=== PATIENT | female | born 1980 | race Caucasian/White ===

== ENCOUNTER 2018-04-29 09:31 | Emergency (ER) | payer BC ==
[2018-04-29] MEDS ORDERED: Acetaminophen/HYDROcodone 325-5 MG Tab PO ONE (10:15)
--- NOTE | 2018-04-29 10:23 | EDM.PDOC ---
<Caroline Neely - Last Filed: 04/29/18 10:30> ED HPI GENERAL MEDICAL PROBLEM - General Chief Complaint: Lower Extremity Injury/Pain Stated Complaint: L LEG INJURY Time Seen by Provider: 04/29/18 09:46 Source of Information: Reports: Patient History Limitations: Reports: No Limitations - History of Present Illness INITIAL COMMENTS - FREE TEXT/NARRATIVE: Pierce is a 37-year-old woman with history of Type 1 Diabetes, hypothyroidism, and dyslipidemia who reports acute onset of left calf pain after jumping up and down at approximately 9am today. She was sitting in the bleachers at her son's basketball game when her son's name was announced, and she jumped up in excitement. As soon as she jumped, she reports feeling a "snap" in her left mid- calf, and has since been unable to bear weight or walk due to pain. Pain is located in the left posterior mid-calf and is described as a throbbing, 9/10 pain. Pain improves with rest and worsens with movement (dorsiflexion and plantar flexion). Pierce reports being adherent to her treatment regimens for Type 1 Diabetes, hypothyroidism, and dyslipidemia. She takes Novolog, Humalog, levothyroxine, and simvastatin and uses a progesterone-only IUD. She has no personal history of fractures or ligament or muscle tears. No history of blood clots. She denies chest pain, pain with breathing, shortness of breath, and alterations in sensation. No hip, knee, or ankle pain. Onset: Today, Sudden Left Lower Leg Pain Score (Numeric/FACES): 8 - Related Data Allergies Allergy/AdvReac Type Severity Reaction Status Date / Time No Known Allergies Allergy Verified 04/29/18 09:42 Home Meds: Home Meds Novolog Insulin. 04/29/18 [History] Tresiba. 18 units SUBCUT ASDIRECTED 04/29/18 [History] Past Medical History Endocrine/Metabolic History: Reports: Diabetes, Type I Review of Systems - Review of Systems Constitutional: Reports: No Symptoms Respiratory: Reports: No Symptoms. Denies: Shortness of Breath, Pleuritic Chest Pain Cardiovascular: Reports: No Symptoms. Denies: Chest Pain GI/Abdominal: Reports: No Symptoms. Denies: Nausea, Vomiting Musculoskeletal: Reports: Muscle Pain (left mid-calf) Skin: Reports: No Symptoms Neurological: Reports: No Symptoms. Denies: Numbness, Tingling Psychiatric: Reports: Anxiety ED EXAM, GENERAL - Physical Exam Free Text/Narrative:: Appears uncomfortable, anxious, tearful. Exam Limited By: Other (limited by pain) General Appearance: Alert, Moderate Distress, Obese Head: Atraumatic Neck: Normal Inspection Respiratory/Chest: No Respiratory Distress, Normal Breath Sounds Cardiovascular: Normal Peripheral Pulses, Regular Rate, Rhythm Peripheral Pulses: 2+: Popliteal (L), Popliteal (R), Posterior Tibial (L), Posterior Tibial (R), Dorsalis Pedis (L), Dorsalis Pedis (R) Extremities: Normal Capillary Refill, Limited Range of Motion (limited dorsiflexion, plantar flexion, eversion and inversion of left foot), Other ( left Achilles tendon is intact. No bony tenderness.). No: Non-Tender (moderate tenderness of left posterior mid-calf) Neurological: Alert, Oriented, No Motor/Sensory Deficits Psychiatric: Anxious, Tearful Skin Exam: Normal Color. No: Erythema, Increased Warmth Course - Vital Signs Last Recorded V/S: Last Vital Signs Temp 97.9 F 04/29/18 09:42 Pulse 67 04/29/18 09:42 Resp 20 04/29/18 09:42 BP 120/74 04/29/18 09:42 Pulse Ox 96 04/29/18 09:42 - Orders/Labs/Meds Meds: Medications Discontinued Medications Generic Name Dose Route Start Last Admin Trade Name Simonq PRN Reason Stop Dose Admin Hydrocodone Bitart/Acetaminophen 1 tab 04/29/18 10:15 04/29/18 10:28 Victor 325-5 Mg PO 04/29/18 10:16 1 tab ONETIME ONE Administration Departure - Departure Disposition: Home, Self-Care 01 Clinical Impression: Muscle strain, lower leg Qualifiers: Encounter type: sequela Laterality: left Qualified Code(s): S86.912S - Strain of unspecified muscle(s) and tendon(s) at lower leg level, left leg, sequela - Discharge Information Instructions: Muscle Strain, [id number] Referrals: Madelin Islas MD [Primary Care Provider] - Forms: ED Department Discharge, ED Return to Work/School Form Additional Instructions: David wrap L leg until pain resolving. Elevate leg as much as possible at all times, intermittent ice packs as needed for swelling, Tylenol 26-8 hours as needed for pain, do not take more than 3000 mg per 24 hours. Crutches, nonweight bearing until pain resolving, with Dr. [facility] early next week , first available appointment. Plan to begin physical therapy early to mid next week. Return to ED as needed. <Dwaine Beth Sheldon - Last Filed: 04/30/18 07:51> ED HPI GENERAL MEDICAL PROBLEM - General Source of Information: Reports: RN Notes Reviewed Review of Systems - Review of Systems Review Of Systems: See Below Musculoskeletal: Denies: Joint Pain, Joint Swelling Skin: Denies: Bruising ED EXAM, GENERAL - Physical Exam Exam: See Below Extremities: Leg Pain (tender L mid and l upper med calf, no visible swelling, achilles intact, nontender), Other. No: Pedal Edema, Joint Swelling Skin Exam: Warm, Dry Course - Re-Assessments/Exams Free Text/Narrative Re-Assessment/Exam: 04/30/18 07:40 Initial hx and exam was done by Caroline Peña, 4th year medical student. I agree with her hx and exam. I have also examined patient. Exam indicates tear of calf muscle. MRI was done, shows partial tear of gasrocnemius, see Radiology report for details. Discharge instr. as documented. Departure - Departure Time of Disposition: 13:32 Condition: Fair
--- NOTE | 2018-04-29 14:13 | MR ---
MRI left lower extremity Technique: Various sequences were obtained through the left lower extremity and axial coronal and sagittal planes. Study was obtained from slightly below the knee inferiorly to slightly above the ankle. Comparison: No previous study. Findings: Fluid is seen medial to the calf muscles inferior to the medial head of the gastrocnemius muscle. There is edema being seen within the distal medial head of the gastrocnemius muscle as well as lesser edema within the posterior aspect of the medial head of the gastrocnemius muscle more proximally. There is fluid being seen between the medial head of the gastrocnemius muscle and soleus muscle. No other muscle edema is appreciated. No bone marrow edema is seen within the tibia or fibula. Impression: 1. Increase signal within the medial head of the gastrocnemius muscle as noted above compatible with partial muscle tear. 2. Fluid outside the gastrocnemius muscle which is inferior between the calf muscles and subcutaneous fat. Additional fluid is seen more proximally between the medial head of the gastrocnemius muscle and soleus muscle. 3. No additional abnormality is seen on MRI study of the left lower extremity. Diagnostic code #3
== END 2018-04-29 14:30 | disposition home or self-care (01) ==
LOC: JD.ED 09:31
DX: S86.912A Strain of unspecified muscle(s) and tendon(s) at lower leg level, left leg, initial encounter (principal); E10.9 Type 1 diabetes mellitus without complications; E03.9 Hypothyroidism, unspecified; E78.5 Hyperlipidemia, unspecified; X50.9XXA Other and unspecified overexertion or strenuous movements or postures, initial encounter; Z79.899 Other long term (current) drug therapy; Z79.3 Long term (current) use of hormonal contraceptives
CPT/HCPCS: 73718; 99284; A9270; 99283

== ENCOUNTER 2018-12-03 15:52 | Emergency (ER) | payer BC, OTHER ==
--- NOTE | 2018-12-03 17:04 | EDM.PDOC ---
ED HPI GENERAL MEDICAL PROBLEM - General Chief Complaint: Abdominal Pain Stated Complaint: LOWER ABD PAIN Time Seen by Provider: 12/03/18 16:21 Source of Information: Reports: Patient, RN Notes Reviewed History Limitations: Reports: No Limitations - History of Present Illness INITIAL COMMENTS - FREE TEXT/NARRATIVE: Patient is a 38-year-old female who presents to the ED for the evaluation of lower abdominal pain. The patient's notes that this started roughly this morning. 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 She states that the pain is mostly in her lower abdomen and as a constant crampy pain in nature. She states that this does radiate to her back. She states she couldn' t really find a comfortable spot to sit in and/or walk when she was at school today. The patient does not have a history of kidney stones, but has had a urinary tract infection in the past. The patient states that she has somewhat of an issue with constipation. She states that she got an IUD placed roughly 1 year ago, and she did have some pink reddish bleeding from her vagina this morning as well. Patient notes that she does not normally get up. Now that she has the IUD. She notes that she does not have any other vaginal discharge at this time. She has not had any abdominal surgeries. Her primary care provider is Dr. Browne. She denies any fevers or chills, vomiting or diarrhea but has had some slight nausea as well. Lower Abdomen Pain Score (Numeric/FACES): 6 - Related Data Allergies Allergy/AdvReac Type Severity Reaction Status Date / Time No Known Allergies Allergy Verified 12/03/18 16:13 Home Meds: Home Meds Novolog Insulin. 04/29/18 [History] Tresiba. 16 units SUBCUT BEDTIME 04/29/18 [History] Past Medical History Endocrine/Metabolic History: Reports: Diabetes, Type I Social & Family History - Tobacco Use Smoking Status *Q: Former Smoker Used Tobacco, but Quit: Yes Month/Year Tobacco Last Used: 2016 ED ROS GENERAL - Review of Systems Review Of Systems: See Below Constitutional: Reports: No Symptoms HEENT: Reports: No Symptoms Respiratory: Reports: No Symptoms Cardiovascular: Reports: No Symptoms Endocrine: Reports: No Symptoms GI/Abdominal: Reports: Abdominal Pain (lower abdominal pain), Constipation, Nausea. Denies: Diarrhea, Vomiting : Reports: Other (pink-light red). Denies: Discharge, Dysuria, Flank Pain, Frequency, Urgency Musculoskeletal: Reports: Back Pain (low back) Skin: Reports: No Symptoms Neurological: Reports: No Symptoms Psychiatric: Reports: No Symptoms Hematologic/Lymphatic: Reports: No Symptoms Immunologic: Reports: No Symptoms ED EXAM, GI/ABD - Physical Exam Exam: See Below Exam Limited By: No Limitations General Appearance: Alert, WD/WN, No Apparent Distress Eyes: Bilateral: Normal Appearance Ears: Normal External Exam Nose: Normal Inspection Throat/Mouth: Normal Inspection, Normal Lips, Normal Teeth, Normal Gums, Normal Oropharynx, Normal Voice, No Airway Compromise Head: Atraumatic, Normocephalic Neck: Normal Inspection Respiratory/Chest: No Respiratory Distress, Lungs Clear, Normal Breath Sounds, No Accessory Muscle Use, Chest Non-Tender Cardiovascular: Normal Peripheral Pulses, Regular Rate, Rhythm, No Murmur GI/Abdominal Exam: Normal Bowel Sounds, Soft, No Distention, No Mass, Tender ( lower abdomen bilaterally and suprapubic) Back Exam: Normal Inspection, Full Range of Motion. No: CVA Tenderness (L), CVA Tenderness (R) Extremities: Normal Inspection, Normal Capillary Refill Neurological: Alert, Oriented, Normal Cognition, No Motor/Sensory Deficits Psychiatric: Normal Affect, Normal Mood Skin Exam: Warm, Dry, Intact, Normal Color, No Rash Course - Vital Signs Last Recorded V/S: Last Vital Signs Temp 98.1 F 12/03/18 16:13 Pulse 57 L 12/03/18 16:13 Resp 16 12/03/18 16:13 BP 116/72 12/03/18 16:13 Pulse Ox 98 12/03/18 16:13 - Orders/Labs/Meds Orders: Active Orders 24 hr Category Date Time Status Enema [RC] ASDIRECTED Care 12/03/18 18:37 Active Abdomen 2V AP Flat Upright [CR] Stat Exams 12/03/18 17:45 Taken Labs: Laboratory Tests 12/03/18 12/03/18 12/03/18 Range/Units 16:50 16:50 17:09 WBC 8.10 (3.98-10.04) K/mm3 RBC 4.39 (3.98-5.22) M/mm3 Hgb 12.6 (11.2-15.7) gm/L Hct 39.7 (34.1-44.9) % MCV 90.4 (79.4-94.8) fl MCH 28.7 (25.6-32.2) pg MCHC 31.7 L (32.2-35.5) g/dl RDW Std Deviation 43.9 (36.4-46.3) fL Plt Count 275 (182-369) K/mm3 MPV 11.1 (9.4-12.3) fl Neutrophils % (Manual) 73 H (40-60) % Band Neutrophils % 0 (0-10) % Lymphocytes % (Manual) 18 L (20-40) % Atypical Lymphs % 0 % Monocytes % (Manual) 5 (2-10) % Eosinophils % (Manual) 3 (0.7-5.8) % Basophils % (Manual) 1 (0.1-1.2) Platelet Estimate Adequate RBC Morph Comment Normal Sodium (136-145) mEq/L Potassium (3.5-5.1) mEq/L Chloride (98-107) mEq/L Carbon Dioxide (21-32) mEq/L Anion Gap (5-15) BUN (7-18) mg/dL Creatinine (0.55-1.02) mg/dL Est Cr Clr Drug Dosing mL/min Estimated GFR (MDRD) (>60) mL/min BUN/Creatinine Ratio (14-18) Glucose (74-106) mg/dL Calcium (8.5-10.1) mg/dL Total Bilirubin (0.2-1.0) mg/dL AST (15-37) U/L ALT (14-59) U/L Alkaline Phosphatase (46-116) U/L Total Protein (6.4-8.2) g/dl Albumin (3.4-5.0) g/dl Globulin gm/dL Albumin/Globulin Ratio (1-2) Urine Color Yellow (Yellow) Urine Appearance Clear (Clear) Urine pH 7.0 (5.0-8.0) Ur Specific [place] 1.020 (1.005-1.030) Urine Protein Trace H (Negative) Urine Glucose (UA) 2+ H (Negative) Urine Ketones Negative (Negative) Urine Occult Blood Negative (Negative) Urine Nitrite Negative (Negative) Urine Bilirubin Negative (Negative) Urine Urobilinogen 0.2 (0.2-1.0) Ur Leukocyte Esterase Negative (Negative) Urine RBC 0-5 (0-5) /hpf Urine WBC 0-5 (0-5) /hpf Ur Epithelial Cells 0-5 (0-5) /hpf Urine Bacteria Few (FEW) /hpf Urine Mucus Few (FEW) /hpf Urine HCG, Qual Negative (NEGATIVE) 12/03/18 Range/Units 17:09 WBC (3.98-10.04) K/mm3 RBC (3.98-5.22) M/mm3 Hgb (11.2-15.7) gm/L Hct (34.1-44.9) % MCV (79.4-94.8) fl MCH (25.6-32.2) pg MCHC (32.2-35.5) g/dl RDW Std Deviation (36.4-46.3) fL Plt Count (182-369) K/mm3 MPV (9.4-12.3) fl Neutrophils % (Manual) (40-60) % Band Neutrophils % (0-10) % Lymphocytes % (Manual) (20-40) % Atypical Lymphs % % Monocytes % (Manual) (2-10) % Eosinophils % (Manual) (0.7-5.8) % Basophils % (Manual) (0.1-1.2) Platelet Estimate RBC Morph Comment Sodium 136 (136-145) mEq/L Potassium 4.4 (3.5-5.1) mEq/L Chloride 102 (98-107) mEq/L Carbon Dioxide 29 (21-32) mEq/L Anion Gap 9.4 (5-15) BUN 18 (7-18) mg/dL Creatinine 1.1 H (0.55-1.02) mg/dL Est Cr Clr Drug Dosing 74.25 mL/min Estimated GFR (MDRD) 55 (>60) mL/min BUN/Creatinine Ratio 16.4 (14-18) Glucose 286 H (74-106) mg/dL Calcium 8.5 (8.5-10.1) mg/dL Total Bilirubin 0.6 (0.2-1.0) mg/dL AST 14 L (15-37) U/L ALT 19 (14-59) U/L Alkaline Phosphatase 72 (46-116) U/L Total Protein 6.8 (6.4-8.2) g/dl Albumin 3.6 (3.4-5.0) g/dl Globulin 3.2 gm/dL Albumin/Globulin Ratio 1.1 (1-2) Urine Color (Yellow) Urine Appearance (Clear) Urine pH (5.0-8.0) Ur Specific [place] (1.005-1.030) Urine Protein (Negative) Urine Glucose (UA) (Negative) Urine Ketones (Negative) Urine Occult Blood (Negative) Urine Nitrite (Negative) Urine Bilirubin (Negative) Urine Urobilinogen (0.2-1.0) Ur Leukocyte Esterase (Negative) Urine RBC (0-5) /hpf Urine WBC (0-5) /hpf Ur Epithelial Cells (0-5) /hpf Urine Bacteria (FEW) /hpf Urine Mucus (FEW) /hpf Urine HCG, Qual (NEGATIVE) Meds: Medications Discontinued Medications Generic Name Dose Route Start Last Admin Trade Name Maria E PRN Reason Stop Dose Admin Magnesium Citrate 296 ml 12/03/18 18:34 Citrate Of Magnesia PO 12/03/18 18:35 ONETIME ONE - Re-Assessments/Exams Free Text/Narrative Re-Assessment/Exam: 12/03/18 17:06 Patient presents to the ED for the evaluation of lower abdominal pain. It is likely that she is suffering from constipation, however I have ordered a UA with hCG qualitative, a CBC and CMP to be drawn for further evaluation. 12/03/18 17:47 Patient's labs are done, and are essentially within normal limits. Her glucose is mildly elevated however she is a type I diabetic. I have ordered an abdominal x-ray to evaluate for constipation. 12/03/18 18:40 Patient's abdomen x-ray is completed and does demonstrate a large amount of stool in her right and left colon. She would benefit from magnesium citrate and an enema. I did discuss this with the patient and I will send this home with her after the nurse shows her how to use an enema. Departure - Departure Time of Disposition: 18:38 Disposition: Home, Self-Care 01 Condition: Fair Clinical Impression: Constipation Qualifiers: Constipation type: other constipation type Qualified Code(s): K59.09 - Other constipation - Discharge Information *PRESCRIPTION DRUG MONITORING PROGRAM REVIEWED*: No *COPY OF PRESCRIPTION DRUG MONITORING REPORT IN PATIENT RODDY: No Instructions: Constipation, Adult, [id number] Referrals: Madelin Islas MD [Primary Care Provider] - Forms: ED Department Discharge Additional Instructions: You have been evaluated in the ED tonight for your lower abdominal pain. Your workup was essentially normal, however your x-ray did demonstrate you have a large amount of stool in your right side of your colon and the left side of your colon. You have been given magnesium citrate, and an enema for relief from constipation. Please take the enema as directed per nursing staff, please take magnesium citrate, one half bottle at first and if no results within 1-2 hours please take the other half of the bottle. Please return to the ED if your symptoms should change or worsen. - My Orders Last 24 Hours: My Active Orders 12/03/18 17:45 Abdomen 2V AP Flat Upright [CR] Stat 12/03/18 18:37 Enema [RC] ASDIRECTED - Assessment/Plan Last 24 Hours: My Active Orders 12/03/18 17:45 Abdomen 2V AP Flat Upright [CR] Stat 12/03/18 18:37 Enema [RC] ASDIRECTED
[2018-12-03] MEDS ORDERED: Magnesium Citrate Solution 296 ML Bottle PO ONE (18:34)
--- NOTE | 2018-12-04 08:07 | CR ---
Abdomen: Supine and upright views of the abdomen were obtained. Comparison: No prior abdominal x-ray. Scattered gas noted within multiple small bowel loops within left upper abdomen. Slight stool and gas is noted within the colon. IUD is present within the pelvis. Bony structures are unremarkable. No free air is seen. Impression: 1. Multiple nondilated small bowel loops filled with gas located within the left upper abdomen. Difficult to exclude mild small bowel ileus from underlying abdominal process. Findings could also represent excessive swallowed air. 2. IUD. 3. Abdominal x-ray is otherwise unremarkable. Diagnostic code #3
== END 2018-12-03 18:51 | disposition home or self-care (01) ==
LOC: JD.ED 15:52
DX: K59.09 Other constipation (principal); Z87.891 Personal history of nicotine dependence
CPT/HCPCS: 36415; 74019; 80053; 81001; 81025; 85007; 85027; 99284; A9270

== ENCOUNTER 2021-12-18 20:31 | Emergency (ER) | payer BC ==
[2021-12-18] MEDS ORDERED: Lidocaine 1% 10 ML MDV INJECT ONE (21:00)
[2021-12-18] MEDS ORDERED: Diphtheria,Pertussis(Acell),Tetanus Vaccine 0.5 ML Syringe IM ONE (21:00)
== END 2021-12-18 21:48 | disposition home or self-care (01) ==
LOC: JD.ED 20:31
DX: S61.216A Laceration without foreign body of right little finger without damage to nail, initial encounter (principal); E78.00 Pure hypercholesterolemia, unspecified; E03.9 Hypothyroidism, unspecified; E10.9 Type 1 diabetes mellitus without complications; Z87.891 Personal history of nicotine dependence; Z23 Encounter for immunization; W26.8XXA Contact with other sharp object(s), not elsewhere classified, initial encounter
CPT/HCPCS: 12002; 90471; 90715; 99282-25

== ENCOUNTER 2025-05-28 07:38 | Emergency (ER) | payer BC ==
[2025-05-28 08:37] LABS: BASOPHILS ABSOLUTE AUTO 0.1 K/mm3 (0.0-0.2); BASOPHILS PERCENT AUTO 1.6 % (0.0-1.0); EOSINOPHILS ABSOLUTE AUTO 0.3 K/mm3 (0.0-0.4); EOSINOPHILS PERCENT AUTO 5.6 % (0.0-6.0); IMMATURE GRAN ABSOLUTE AUTO 0.01 K/mm3 (0.00-0.05); IMMATURE GRAN PERCENT AUTO 0.2 % (0.0-0.4); LYMPHOCYTES ABSOLUTE AUTO 1.6 K/mm3 (1.0-4.8); LYMPHOCYTES PERCENT AUTO 30.5 % (24.0-44.0); MEAN PLATELET VOLUME 11.4 fl (9.4-12.3); MONOCYTES ABSOLUTE AUTO 0.5 K/mm3 (0.0-0.8); MONOCYTES PERCENT AUTO 9.9 % (0.0-8.0); NEUTROPHILS ABSOLUTE AUTO 2.7 K/mm3 (1.8-7.7); NEUTROPHILS PERCENT AUTO 52.2 % (41.0-71.0); NRBC ABSOLUTE 0.00 (0.00-0.02); NRBC PERCENT 0.0 % (0.0-0.2); PLATELET COUNT,PLT 216 K/mm3 (150-400); RED BLOOD CELL COUNT 4.50 M/mm3 (4.10-5.30); WHITE BLOOD CELL COUNT,WBC 5.15 K/mm3 (3.9-11.3)
[2025-05-28] MEDS: Sodium Chloride 0.9% 10 ML Syringe FLUSH PRN (09:02)
[2025-05-28] MEDS: Alum Hydrox/Mag Hydrox/Simeth 30 ML, Lidocaine 2% 15 ML PO ONE (09:02)
[2025-05-28 09:04] LABS: A/G RATIO 1.1 (1-2); ALANINE AMINOTRANSFERASE,ALT 24.0 U/L (14-59); ASPARTATE AMNIOTRANSFERASE,AST 17.0 U/L (15-37); BILIRUBIN TOTAL 1.0 mg/dL (0.2-1.0); BLOOD UREA NITROGEN,BUN 17.0 mg/dL (7-18); CARBON DIOXIDE,CO2 31.0 mEq/L (21-32); CHLORIDE,CL 102.0 mEq/L (98-107); CREATININE 1.2 mg/dL (0.55-1.02); EST CRCL DRUG DOSING (CG) 64.02 mL/min; ESTIMATED GFR 57.0 mL/min (>60); GLUCOSE RANDOM 187.0 mg/dL (70-99); POTASSIUM,K 3.8 mEq/L (3.5-5.1); PROTEIN TOTAL,TP 7.2 g/dl (6.4-8.2); SODIUM,NA 138.0 mEq/L (136-145); TROPONIN I HIGH SENSITIVITY 6.0 pg/mL (<=51)
== END 2025-05-28 12:04 | disposition home or self-care (01) ==
LOC: JD.ED 07:38
DX: M79.621 Pain in right upper arm (principal); E78.00 Pure hypercholesterolemia, unspecified; E10.9 Type 1 diabetes mellitus without complications; E03.9 Hypothyroidism, unspecified; Z86.79 Personal history of other diseases of the circulatory system; Z79.4 Long term (current) use of insulin; Z79.890 Hormone replacement therapy; Z79.899 Other long term (current) drug therapy
CPT/HCPCS: 36415; 71045; 73060; 80053; 83690; 84484; 84703; 85025; 93005; 99285; A9270; J3490; 93010; 99284